=== PATIENT | male | born 1970 | race Caucasian/White ===

== ENCOUNTER 2016-06-21 16:18 | Emergency (ER) | payer SELFPAY ==
[~2016-06-21] VITALS: Ht 190.5 cm; Wt 109.0 kg
[2016-06-21 17:20] LABS: BASOPHILS % (AUTO) 0.3 % (0.0-2.0); EOSINOPHILS % (AUTO) 0.5 % (1.0-6.0); HEMATOCRIT 42.4 % (41-53); HEMOGLOBIN 13.8 g/dL (13.5-17.5); LYMPHOCYTES # (AUTO) 1.2 K/uL (1.0-4.8); LYMPHOCYTES % (AUTO) 11.4 % (22.0-44.0); MEAN CORPUSCULAR HEMOGLOBIN 33.5 pg (26.0-34.0); MEAN CORPUSCULAR HGB CONC 32.6 G/dL (31.0-37.0); MEAN CORPUSCULAR VOLUME 103 fL (80-100); MONOCYTES # (AUTO) 1.1 K/uL (0.1-1.0); MONOCYTES % (AUTO) 10.7 % (2.0-9.0); NEUTROPHILS # (AUTO) 8.2 K/uL (1.8-7.7); NEUTROPHILS % (AUTO) 77.1 % (40.0-70.0); PLATELET COUNT (AUTO) 193 K/uL (150-450); RED BLOOD CELL COUNT(AUTO) 4.13 MIL/uL (4.50-5.90); RED CELL DISTRIBUTION WIDTH 13.5 % (11.5-14.5); WHITE BLOOD COUNT (AUTO) 10.6 K/uL (4.5-11.0)
[2016-06-21 17:28] LABS: ANION GAP 19 mmol/L (8-16); CALCIUM, TOTAL 9.3 mg/dL (8.8-10.5); CARBON DIOXIDE 21 mmol/L (22-29); CHLORIDE 95 mmol/L (98-107); CREATININE 1.57 mg/dL (0.60-1.30); GLOMERULAR FILTR. RATE CALC 48 mL/min (>60); POTASSIUM 4.5 mmol/L (3.5-5.1); SODIUM SERUM 135 mmol/L (136-145); UREA NITROGEN, BLOOD 34 mg/dL (7-18)
[2016-06-21 17:34] LABS: ALANINE AMINOTRANSFERASE 111 U/L (12-78); ALBUMIN 3.7 g/dL (3.4-5.0); ASPARTATE AMINOTRANSFERASE 167 U/L (15-37); BILIRUBIN,TOTAL 1.3 mg/dL (0.1-1.0); TOTAL PROTEIN, SERUM 8.2 g/dL (6.4-8.2)
[2016-06-21 19:41] VITALS: BP 122/78
== END 2016-06-21 21:18 | disposition left against medical advice (07) ==
LOC: EMS 16:24
DX: Z00.8 Encounter for other general examination (principal); Z53.21 Procedure and treatment not carried out due to patient leaving prior to being seen by health care provider
CPT/HCPCS: 36415; 80053; 85025; G0480

== ENCOUNTER 2016-06-22 02:27 | Inpatient (IN) | payer MEDICAID, OTHER ==
[~2016-06-22] VITALS: Ht 190.5 cm; Wt 101.2 kg
[2016-06-22 03:48] LABS: BASOPHILS % (AUTO) 0.4 % (0.0-2.0); EOSINOPHILS % (AUTO) 0.7 % (1.0-6.0); HEMATOCRIT 40.6 % (41-53); HEMOGLOBIN 13.3 g/dL (13.5-17.5); LYMPHOCYTES # (AUTO) 0.9 K/uL (1.0-4.8); LYMPHOCYTES % (AUTO) 10.1 % (22.0-44.0); MEAN CORPUSCULAR HEMOGLOBIN 33.4 pg (26.0-34.0); MEAN CORPUSCULAR HGB CONC 32.9 G/dL (31.0-37.0); MEAN CORPUSCULAR VOLUME 102 fL (80-100); MONOCYTES % (AUTO) 10.4 % (2.0-9.0); NEUTROPHILS # (AUTO) 7.2 K/uL (1.8-7.7); NEUTROPHILS % (AUTO) 78.4 % (40.0-70.0); PLATELET COUNT (AUTO) 183 K/uL (150-450); RED BLOOD CELL COUNT(AUTO) 3.99 MIL/uL (4.50-5.90); WHITE BLOOD COUNT (AUTO) 9.2 K/uL (4.5-11.0)
[2016-06-22 03:54] LABS: ANION GAP 16 mmol/L (8-16); CARBON DIOXIDE 23 mmol/L (22-29); CHLORIDE 95 mmol/L (98-107); CREATININE 1.59 mg/dL (0.60-1.30); GLOMERULAR FILTR. RATE CALC 47 mL/min (>60); POTASSIUM 4.2 mmol/L (3.5-5.1); SODIUM SERUM 134 mmol/L (136-145); UREA NITROGEN, BLOOD 41 mg/dL (7-18)
[2016-06-22 04:00] LABS: ALANINE AMINOTRANSFERASE 111 U/L (12-78); ALBUMIN 3.7 g/dL (3.4-5.0); ASPARTATE AMINOTRANSFERASE 150 U/L (15-37); BILIRUBIN,TOTAL 1.2 mg/dL (0.1-1.0)
[2016-06-22 04:06] LABS: RBC MORPHOLOGY COMMENT ABNORMAL RBC MORPH
[2016-06-22] MEDS ORDERED: LORazepam 2 MG/ML VIAL IM ONE (04:45)
[2016-06-22] MEDS ORDERED: DiphenhydrAMINE HCL 50 MG/ML VIAL IM ONE (04:45)
[2016-06-22] MEDS ORDERED: HALOPERIDOL LACTATE 5 MG/ML VIAL IM ONE (04:45)
[2016-06-22 15:04] VITALS: BP 116/78
[2016-06-22 16:00] VITALS: BP 127/69
[2016-06-22] MEDS ORDERED: ACETAMINOPHEN 325 MG TABLET PO PRN (16:00)
[2016-06-22] MEDS ORDERED: ALBUTEROL SULFATE HFA 90 MCG/PUFF 8 GM INHALER IH PRN (16:00)
[2016-06-22] MEDS ORDERED: PNEUMOCOCCAL VACCINE POLYVALENT 0.5 ML VIAL [PPSV23] IM ONE (16:15)
[2016-06-23 06:10] VITALS: BP 123/71
[2016-06-23] MEDS: FERROUS SULFATE 325 MG EC TABLET PO SCH ×3 (06:39→17:14)
[2016-06-23 08:27] VITALS: BP 106/65
[2016-06-23] MEDS: LORazepam 2 MG TABLET PO PRN (12:45)
[2016-06-23 16:00] VITALS: BP 111/65
[2016-06-23] MEDS: RisperiDONE 2 MG TABLET PO SCH (17:14)
[2016-06-24 06:33] VITALS: BP 118/62
[2016-06-24] MEDS: FERROUS SULFATE 325 MG EC TABLET PO SCH ×3 (06:44→17:20)
[2016-06-24 08:26] VITALS: BP 124/63
[2016-06-24] MEDS: RisperiDONE 2 MG TABLET PO SCH ×2 (08:58→17:20)
[2016-06-24 16:00] VITALS: BP 110/73
[2016-06-24] MEDS: LORazepam 2 MG TABLET PO PRN (17:20)
[2016-06-24] MEDS: HALOPERIDOL 5 MG TABLET PO PRN (17:20)
[2016-06-24] MEDS: ZOLPIDEM TARTRATE 10 MG TABLET PO PRN (20:21)
[2016-06-25] MEDS: FERROUS SULFATE 325 MG EC TABLET PO SCH ×3 (07:06→17:34)
[2016-06-25 07:18] VITALS: BP 104/69
[2016-06-25 08:30] VITALS: BP 110/62
[2016-06-25 08:45] LABS: ANION GAP 7 mmol/L (8-16); CALCIUM, TOTAL 9.3 mg/dL (8.8-10.5); CARBON DIOXIDE 30 mmol/L (22-29); CHLORIDE 103 mmol/L (98-107); CREATININE 0.87 mg/dL (0.60-1.30); GLOMERULAR FILTR. RATE CALC > 60 mL/min (>60); POTASSIUM 4.3 mmol/L (3.5-5.1); SODIUM SERUM 140 mmol/L (136-145); UREA NITROGEN, BLOOD 17 mg/dL (7-18)
[2016-06-25] MEDS: RisperiDONE 2 MG TABLET PO SCH ×2 (09:26→17:34)
[2016-06-25 12:10] LABS: HEPATITIS Bs ANTIGEN SCREEN P Negative (Negative); HEPATITIS C AB SCREEN <0.1 s/co ratio (0.0-0.9)
[2016-06-25 16:00] VITALS: BP 118/76
[2016-06-25] MEDS: LORazepam 2 MG TABLET PO PRN (17:40)
[2016-06-26] MEDS: FERROUS SULFATE 325 MG EC TABLET PO SCH ×3 (06:22→16:13)
[2016-06-26 07:08] VITALS: BP 116/72
[2016-06-26 08:35] VITALS: BP 115/60
[2016-06-26] MEDS: RisperiDONE 2 MG TABLET PO SCH ×2 (08:47→16:13)
[2016-06-26] MEDS: LORazepam 2 MG TABLET PO PRN ×2 (10:02→16:12)
[2016-06-26 16:12] VITALS: BP 121/73
[2016-06-26] MEDS: HALOPERIDOL 5 MG TABLET PO PRN (16:12)
[2016-06-26] MEDS: ZOLPIDEM TARTRATE 10 MG TABLET PO PRN (21:42)
[2016-06-27] MEDS: FERROUS SULFATE 325 MG EC TABLET PO SCH ×3 (06:33→16:05)
[2016-06-27 07:07] VITALS: BP 115/68
[2016-06-27] MEDS: RisperiDONE 2 MG TABLET PO SCH ×2 (08:51→16:05)
[2016-06-27] MEDS: HALOPERIDOL 5 MG TABLET PO PRN ×2 (08:51→16:05)
[2016-06-27 09:54] VITALS: BP 107/49
[2016-06-27] MEDS: LORazepam 2 MG TABLET PO PRN (16:05)
[2016-06-27 17:56] VITALS: BP 138/82
[2016-06-28 06:35] VITALS: BP 120/73
[2016-06-28] MEDS: FERROUS SULFATE 325 MG EC TABLET PO SCH ×3 (06:44→17:10)
[2016-06-28 08:22] VITALS: BP 105/73
[2016-06-28] MEDS: RisperiDONE 2 MG TABLET PO SCH ×2 (08:56→17:10)
[2016-06-28] MEDS: LORazepam 2 MG TABLET PO PRN (14:32)
[2016-06-28 16:16] VITALS: BP 119/74
[2016-06-28] MEDS: ZOLPIDEM TARTRATE 10 MG TABLET PO PRN (20:22)
[2016-06-29 06:22] VITALS: BP 123/72
[2016-06-29] MEDS: FERROUS SULFATE 325 MG EC TABLET PO SCH (06:24)
[2016-06-29] MEDS: RisperiDONE 2 MG TABLET PO SCH (08:24)
[2016-06-29] MEDS ORDERED: RISP2 PO (08:29)
[2016-06-29] MEDS ORDERED: FERR-89 PO (08:30)
[2016-06-29 08:47] VITALS: BP 104/60
[2016-08-28] MEDS ORDERED: RISP2 PO (13:31)
== END 2016-06-29 10:44 | disposition home or self-care (01) | DRG 750 ==
LOC: EEVIPCON 02:27 → EMS 02:27 → B3A 15:08
PROVIDERS: ADMIT Psychiatry & Neurology Child & Adolescent Psychiatry; ATTEND Psychiatry & Neurology Child & Adolescent Psychiatry
DX: F20.0 Paranoid schizophrenia (principal); J81.1 Chronic pulmonary edema; N18.3 Chronic kidney disease, stage 3 (moderate); F41.9 Anxiety disorder, unspecified; J45.909 Unspecified asthma, uncomplicated; D64.9 Anemia, unspecified; J44.9 Chronic obstructive pulmonary disease, unspecified; M19.90 Unspecified osteoarthritis, unspecified site; F10.10 Alcohol abuse, uncomplicated; F12.10 Cannabis abuse, uncomplicated; F15.10 Other stimulant abuse, uncomplicated; F17.210 Nicotine dependence, cigarettes, uncomplicated; Z71.41 Alcohol abuse counseling and surveillance of alcoholic; Z28.21 Immunization not carried out because of patient refusal; Z71.51 Drug abuse counseling and surveillance of drug abuser
CPT/HCPCS: 80074; 90471; 96372; 99285; G0480; J1200; J1630; J2060

== ENCOUNTER 2016-08-23 08:27 | Emergency (ER) | payer MEDICAID, OTHER ==
[~2016-08-23] VITALS: Ht 190.5 cm; Wt 100.0 kg
[~2016-08-23 08:27] MED LIST: FERR-89 PO; RISP2 PO
[2016-08-23] MEDS ORDERED: SODIUM CHLORIDE 0.9% 1,000 ML IV ONE ×2 (08:45→10:45)
[2016-08-23] MEDS ORDERED: MAGNESIUM SULFATE 2 GM, MVI, ADULT NO.1 WITH VIT K 10 ML, THIAMINE HCL 100 MG, FOLIC AC... IV ONE ×5 (08:45)
[2016-08-23 08:52] LABS: GLUCOSE,POINT OF CARE 93 MG/DL (70-110)
[2016-08-23] MEDS ORDERED: NALOXONE HCL 1 MG/ML 2 ML SYG IVP ONE (09:00)
[2016-08-23 09:05] LABS: BASOPHILS # (AUTO) 0.04 K/uL (0.00-0.20); BASOPHILS % (AUTO) 0.5 % (0.0-2.0); EOSINOPHILS # (AUTO) 0.12 K/uL (0.00-0.70); EOSINOPHILS % (AUTO) 1.31 % (1.0-6.0); HEMATOCRIT 42.1 % (41-53); HEMOGLOBIN 13.8 g/dL (13.5-17.5); LYMPHOCYTES # (AUTO) 1.3 K/uL (1.0-4.8); LYMPHOCYTES % (AUTO) 15.1 % (22.0-44.0); MEAN CORPUSCULAR HEMOGLOBIN 33.6 pg (26.0-34.0); MEAN CORPUSCULAR HGB CONC 32.8 G/dL (31.0-37.0); MEAN CORPUSCULAR VOLUME 103 fL (80-100); MONOCYTES # (AUTO) 0.9 K/uL (0.1-1.0); NEUTROPHILS # (AUTO) 6.5 K/uL (1.8-7.7); NEUTROPHILS % (AUTO) 73.2 % (40.0-70.0); PLATELET COUNT (AUTO) 175 K/uL (150-450); RED BLOOD CELL COUNT(AUTO) 4.11 MIL/uL (4.50-5.90); RED CELL DISTRIBUTION WIDTH 13.7 % (11.5-14.5); WHITE BLOOD COUNT (AUTO) 8.9 K/uL (4.5-11.0)
[2016-08-23 09:08] LABS: RBC MORPHOLOGY COMMENT ABNORMAL RBC MORPH
[2016-08-23 09:18] LABS: ANION GAP 11 mmol/L (8-16); CALCIUM, TOTAL 9.2 mg/dL (8.8-10.5); CARBON DIOXIDE 26 mmol/L (22-29); CHLORIDE 98 mmol/L (98-107); CREATININE 1.33 mg/dL (0.60-1.30); GLOMERULAR FILTR. RATE CALC 58 mL/min (>60); POTASSIUM 3.8 mmol/L (3.5-5.1); SODIUM SERUM 135 mmol/L (136-145); UREA NITROGEN, BLOOD 37 mg/dL (7-18)
[2016-08-23 09:28] LABS: ALANINE AMINOTRANSFERASE 100 U/L (12-78); ALBUMIN 3.6 g/dL (3.4-5.0); ASPARTATE AMINOTRANSFERASE 372 U/L (15-37); BILIRUBIN,TOTAL 1.2 mg/dL (0.1-1.0); TOTAL PROTEIN, SERUM 7.8 g/dL (6.4-8.2)
[2016-08-23 09:30] LABS: B-TYPE NATRIURETIC PEPTIDE 20 pg/mL (0-100)
[2016-08-23 09:33] LABS: SALICYLATE 4.1 mg/dL (2.8-20.0)
[2016-08-23 09:43] LABS: ACETAMINOPHEN < 2 mcg/mL (10-30)
[2016-08-23 11:52] LABS: APPEARANCE,URINE CLEAR (CLEAR); GLUCOSE, URINE (UA) NEGATIVE (NEGATIVE); KETONES,URINE 15 mg/dL (NEGATIVE); LEUKOCYTE ESTERASE ,URINE NEGATIVE (NEGATIVE); OCCULT BLOOD,URINE SMALL (NEGATIVE); PH,URINE 5.5 (5.0-8.0); PROTEIN,URINE POS 1+ (NEGATIVE)
[2016-08-23 12:12] LABS: ADD UA MICROSCOPIC YES
[2016-08-23 12:17] LABS: RBC,URINE 0-2 /HPF (0-2); SQUAMOUS EPITHELIAL CELL,UR Few /LPF (None Seen); WBC,URINE None Seen /HPF (0-5)
[2016-08-23 13:19] VITALS: BP 119/66
== END 2016-08-23 13:20 | disposition home or self-care (01) ==
LOC: EMS 08:30
DX: R41.82 Altered mental status, unspecified (principal); F12.10 Cannabis abuse, uncomplicated; F25.9 Schizoaffective disorder, unspecified; F17.210 Nicotine dependence, cigarettes, uncomplicated; F19.90 Other psychoactive substance use, unspecified, uncomplicated
CPT/HCPCS: 36415; 80053; 80307; 81001; 82962; 83880; 84484; 85025; 93005; 96361; 96365; 96375; 99285; 99406; G0480; J2310; J3411; J3475; J3490 ×2; J7030; G0481